=== PATIENT | female | born 1975 | race African-American/Black ===

== ENCOUNTER → 2017-04-26 | Outpatient (CLI) | payer OTHER ==
--- NOTE | 2017-04-27 08:53 | RADIOLOGY REPORT (SQ) ---
EXAM DESCRIPTION: MRI RT UPPER JOINT WITHOUT COMPLETED DATE/TIME: 04/26/2017 7:17 pm REASON FOR STUDY: STRAIN OF UNSPECIFIED MUSCLE, FASCIA AND TENDON AT SHOULDER AND UPPER ARM L S46.91 1A STRAIN UNSP MUSC/FASC/TEND AT SHLDR/UP ARM, RIGHT A COMPARISON: None. TECHNIQUE: Right shoulder images acquired and stored on PACS. Multiplanar imaging to include fat sen sitive sequences such as T1, water sensitive sequences such as FST2/STIR, cartilage sensitive sequenc es such as FSPD/gradient-echo sequences. LIMITATIONS: Patient motion. FINDINGS: BONE MARROW AND CORTEX: Subchondral cyst formation humeral head. JOINT OR BURSAL EFFUSION: No significant joint or bursal fluid. No suggestion of loose bodies. GLENO-HUMERAL ARTICULATION: Normal articulation. No subluxation. No cystic change. No osteophytes or cartilage loss. 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 Type 2 acromion. Mild AC j oint arthropathy. ROTATOR CUFF AND INTERVAL: Heterogeneous intermediate signal throughout thickened rotator cuff. No s ignificant tear identified. No rotator interval tear. No rotator interval thickening to suggest adhesive capsulitis. LABRUM AND BICEPS LABRAL COMPLEX: Intact. No labral tear. Intra-articular long-head biceps tendon n ormal. Distal biceps in normal location in bicipital groove. REMAINDER OF LABRUM AND IGHL : No gross tear or paralabral cyst formation. Labral evaluation is less than optimal without joint distention. No thickening of IGHL to suggest adhesive capsulitis. PERIARTICULAR AND ADJACENT SOFT TISSUES: No masses or abnormal nodes. OTHER: No other significant finding. IMPRESSION: 1. 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 2. Mild AC joint arthropathy. 3. Cuff tendinopathy. No significant tear identified. TECHNICAL DOCUMENTATION: JOB ID: [id number] [employer]- All Rights Reserved
== END ==
LOC: RAD 18:25
PROVIDERS: ATTEND Physician Assistant
DX: S46.911A Strain of unspecified muscle, fascia and tendon at shoulder and upper arm level, right arm, initial encounter (principal); X58.XXXA Exposure to other specified factors, initial encounter

== ENCOUNTER → 2018-03-29 | Outpatient (CLI) | payer OTHER ==
--- NOTE | 2018-03-29 15:37 | RADIOLOGY REPORT (SQ) ---
EXAM DESCRIPTION: KNEE LEFT 4 VIEWS COMPLETED DATE/TIME: 03/29/2018 3:25 pm REASON FOR STUDY: LEFT KNEE PAIN;NO HX OF TRAUMA, DECREASED ROM X 2 WEEKS M25.562 PAIN IN LEFT KNEE COMPARISON: None. NUMBER OF VIEWS: Four views. TECHNIQUE: AP, lateral, and both oblique radiographic images acquired of the left knee. LIMITATIONS: None. FINDINGS: MINERALIZATION: Normal. BONES: No acute fracture or dislocation. No worrisome bone lesions. JOINT: No effusion. SOFT TISSUES: No soft tissue swelling. No radio-opaque foreign body. OTHER: No other significant finding. IMPRESSION: NEGATIVE STUDY OF THE LEFT KNEE. NO RADIOGRAPHIC EVIDENCE OF ACUTE INJURY. TECHNICAL DOCUMENTATION: JOB ID: [id number] [employer]- All Rights Reserved Reading location - IP/workstation name: [email or web address]
[2018-03-29 15:42] LABS: ABSOLUTE EOSINOPHILS # (AUTO) 0.1 10^3/uL (0.0-0.6); ABSOLUTE LYMPHOCYTES (AUTO) 1.6 10^3/uL (0.5-4.7); ABSOLUTE MONOCYTES (AUTO) 0.5 10^3/uL (0.1-1.4); ABSOLUTE NEUT (AUTO) 2.8 10^3/uL (1.7-8.2); BASOPHILS % (AUTO) 0.8 % (0-2); EOSINOPHILS % (AUTO) 2.1 % (0-6); HEMATOCRIT 34.5 % (36.0-47.0); HEMOGLOBIN 11.1 g/dL (12.0-15.5); LYMPHOCYTES % (AUTO) 31.6 % (13-45); MEAN CORPUSCULAR HEMOGLOBIN 24.8 pg (27.0-33.4); MEAN CORPUSCULAR HGB CONC 32.2 g/dL (32.0-36.0); MEAN CORPUSCULAR VOLUME 77 fl (80-97); PLATELET COUNT 289 10^3/uL (150-450); RED BLOOD COUNT 4.49 10^6/uL (3.72-5.28); RED CELL DISTRIBUTION WIDTH 15.8 % (11.5-14.0); SEGMENTED NEUTROPHILS % (AUTO) 56.5 % (42-78); TOTAL CELLS COUNTED % (AUTO) 100 %
[2018-03-29 15:52] LABS: ALANINE AMINOTRANSFERASE 20 U/L (9-52); ALBUMIN 4.8 g/dL (3.5-5.0); ALKALINE PHOSPHATASE 61 U/L (38-126); ANION GAP 16 (5-19); ASPARTATE AMINO TRANSFERASE 26 U/L (14-36); BILIRUBIN,DIRECT 0.3 mg/dL (0.0-0.4); BILIRUBIN,TOTAL 0.4 mg/dL (0.2-1.3); BLOOD UREA NITROGEN 13 mg/dL (7-20); CALCIUM 9.7 mg/dL (8.4-10.2); CARBON DIOXIDE 22 mmol/L (22-30); CHLORIDE 105 mmol/L (98-107); CREATINE KINASE 113 U/L (30-135); GLUCOSE 90 mg/dL (75-110); POTASSIUM 4.2 mmol/L (3.6-5.0); SODIUM 143.2 mmol/L (137-145); TOTAL PROTEIN 8.3 g/dL (6.3-8.2)
== END ==
LOC: OD 14:51
PROVIDERS: ATTEND Obstetrics & Gynecology
DX: M25.562 Pain in left knee (principal); M79.662 Pain in left lower leg; R50.9 Fever, unspecified
CPT/HCPCS: 36415; 80053; 82550; 85025; 85379

== ENCOUNTER → 2018-08-02 | Outpatient (CLI) | payer OTHER ==
--- NOTE | 2018-08-03 08:50 | RADIOLOGY REPORT (SQ) ---
EXAM DESCRIPTION: MRI LT LOWER JOINT WITHOUT COMPLETED DATE/TIME: 08/02/2018 8:21 pm REASON FOR STUDY: M25.562 PAIN IN LEFT KNEE M25.562 PAIN IN LEFT KNEE COMPARISON: Left knee MRI 03/29/2018, 11/08/2011 TECHNIQUE: Leftknee images acquired and stored on PACS. Multiplanar images include fat sensitive se quences as T1, water sensitive sequences as FST2 or STIR, cartilage sensitive sequences as FSPD, and gradient echo sequences. LIMITATIONS: None. FINDINGS: JOINT AND BURSAE: 6 x 2 cm Castellano's cyst in the popliteal fossa. No suprapatellar knee darryn nt effusion. BONE CORTEX AND MARROW: No alteration of signal to suggest marrow replacement. No worrisome bone lesi ons. No occult fracture. ACL: Torn, with anterior subluxation of the tibia with respect to the femur best shown on sagittal im ages 10 through 13. PCL: Intact. MCL: Intact. No periligamentous edema or fluid. LCL: Intact. No periligamentous edema or fluid. MEDIAL MENISCUS: Diffuse horizontal tear to the undersurface mid body posterior horn medial meniscus without parameniscal cyst. This best shown on coronal image 14 and sagittal images 4-6. LATERAL MENISCUS: No tears. No abnormal signal. MEDIAL COMPARTMENT: Cartilage preserved. No bone bruises or reactive marrow edema. No osteophytes. LATERAL COMPARTMENT: Cartilage preserved. No bone bruises or reactive marrow edema. No osteophytes. PATELLA: No chondromalacia. No subchondral cysts. Medial and lateral retinacula intact, however there is mild lateral subluxation of patella with respect to the femoral groove. EXTENSOR MECHANISM: Intact. Quadriceps and patella tendons normal. SOFT TISSUES: Adjacent muscles and subcutaneous tissues normal. Normal flow void in popliteal artery and vein. OTHER: No other significant finding. IMPRESSION: Torn anterior cruciate ligament. Diffuse horizontal undersurface mid body are posterior horn medial meniscal tear 6 x 2 cm Castellano's cyst TECHNICAL DOCUMENTATION: JOB ID: [id number] [employer]- All Rights Reserved Reading location - IP/workstation name: [email or web address]
== END ==
LOC: RAD 19:21
PROVIDERS: ATTEND Orthopaedic Surgery Sports Medicine
DX: M25.562 Pain in left knee (principal); S83.512A Sprain of anterior cruciate ligament of left knee, initial encounter; X58.XXXA Exposure to other specified factors, initial encounter